=== PATIENT | male | born 1960 | race Caucasian/White ===

== ENCOUNTER 2023-11-27 00:18 | Emergency (ER) | payer MEDICAID ==
[~2023-11-27] VITALS: Ht 160 cm; Wt 55.0 kg
[~2023-11-27 00:18] MED LIST: AMOX-424 PO; TOPUD PO
[2023-11-27 00:30] VITALS: TEMP 98.6; O2SAT 98
[2023-11-27] MEDS: BACITRACIN ZINC OINT UDPKT TOP ONE (01:57)
[2023-11-27] MEDS: LIDOCAINE HCL/PF 1% 10 MG/ML 5ML VIAL INFIL ONE (01:57)
[2023-11-27] MEDS: TETANUS, DIPHTHERIA, PERTUSSIS VAC/PF 0.5ML (>10YR OLD) IM ONE (01:58)
[2023-11-27 02:59] VITALS: BP 178/76; PULSE 78; RESP 17; O2SAT 100
== END 2023-11-27 03:02 | disposition home or self-care (01) ==
LOC: ER 00:18
DX: S01.81XA Laceration without foreign body of other part of head, initial encounter (principal); F15.10 Other stimulant abuse, uncomplicated; X58.XXXA Exposure to other specified factors, initial encounter; Y93.89 Activity, other specified; Y92.89 Other specified places as the place of occurrence of the external cause; Y99.8 Other external cause status
CPT/HCPCS: 70450; 90715; 12014; 90471; 99285; Z7610

== ENCOUNTER 2023-12-05 21:11 | Emergency (ER) | payer MEDICAID ==
[~2023-12-05] VITALS: Ht 160 cm; Wt 59.4 kg
[2023-12-05 21:13] VITALS: O2SAT 95
[2023-12-05 21:33] VITALS: PULSE 86; RESP 13; TEMP 98.5; O2SAT 99
== END 2023-12-05 23:18 | disposition left against medical advice (07) ==
LOC: ER 21:11
DX: R68.89 Other general symptoms and signs (principal); Z53.21 Procedure and treatment not carried out due to patient leaving prior to being seen by health care provider